=== PATIENT | female | born 1985 | race Caucasian/White ===

== ENCOUNTER 2023-12-23 09:30 | Outpatient (CLI) | payer SELFPAY ==
--- NOTE | 2023-12-23 09:44 | US_ITS ---
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 Uterus: 10.1 cm x 5.9 cm x 4.7 cm. Very slightly enlarged, anteverted uterus. No fibroid or mass. Endometrium: 1.0 cm. Slight heterogeneity of the endometrium. There is a trilaminar appearance of the endometrium. Right ovary: 3.3 cm x 1.9 cm x 2.2 cm. Normal size and vascularity, no cystic or solid masses. Small follicles. Left ovary: LEFT ovary is not visualized. No free fluid in the cul-de-sac. US/US transvaginal [id number] IMPRESSION: 1. Minimal heterogeneity of the endometrium. Trilaminar endometrium measures 1 .0 cm. 2. LEFT ovary not visualized.
== END 2023-12-23 09:31 | disposition home or self-care (01) ==
DX: Z33.3 Pregnant state, gestational carrier (principal); N85.2 Hypertrophy of uterus
CPT/HCPCS: 76830

== ENCOUNTER 2024-01-09 11:54 | Outpatient (CLI) | payer SELFPAY ==
--- NOTE | 2024-01-09 12:01 | MM_ITS ---
WS: [id number] BILATERAL 3D TOMOSYNTHESIS DIGITAL DIAGNOSTIC MAMMOGRAPHY WITH CAD CLINICAL INFORMATION: BREAST LUMP HISTORY: RIGHT breast lump COMPARISON: None available TECHNIQUE: Bilateral CC, MLO, and ML views. FINDINGS: The breasts are composed of heterogeneous fibroglandular density, which can limit the detection of sm all underlying mass lesions. Breast biopsy clip. A few punctate calcifications in this area. Palpable marker RIGHT breast with dense underlying parenchymal tissue. Ultrasound is pending. ULTRASOUND BREAST RIGHT TECHNIQUE: Ultrasound right breast focused area of concern. CLINICAL INFORMATION: BREAST LUMP FINDINGS: Ultrasound the RIGHT breast at the 10 o'clock position 2 cm from the nipple in the area of concern. T here is a lobulated nodule in this area with a central fatty hilum most compatible with a lymph node measuring 1.4 x 1.2 x 0.9 cm. This has reportedly been stable for several years. No other suspicious findings. MM/[place] [id number] IMPRESSION: BI-RADS: 2-Benign FOLLOW UP: Age 42 Recommend annual screening mammography age 40
== END 2024-01-09 11:55 | disposition home or self-care (01) ==
LOC: RAD 11:56
PROVIDERS: Visit Provider Obstetrics & Gynecology Reproductive Endocrinology
DX: N63.11 Unspecified lump in the right breast, upper outer quadrant (principal); R92.1 Mammographic calcification found on diagnostic imaging of breast; N60.41 Mammary duct ectasia of right breast; N64.89 Other specified disorders of breast; Z52.9 Donor of unspecified organ or tissue
CPT/HCPCS: 76642; 77062; G0279